=== PATIENT | male | born 1985 | race Caucasian/White ===

== ENCOUNTER 2016-11-23 11:51 | Emergency (ER) | payer MEDICAID ==
[~2016-11-23] VITALS: Ht 193 cm; Wt 89.4 kg
[~2016-11-23 11:51] MED LIST: CAT.1 PO; DIVA500T4 PO; LORA-258 PO; RISP3TAB11 PO; RISP4TAB17 PO
[2016-11-23 12:13] VITALS: BP_SYST 131
--- NOTE | 2016-11-23 12:13 | NUR ---
Patient to ER bed hallway to gon for evaluation. Side rails up. Received report from Rosario BERNSTEIN.
--- NOTE | 2016-11-23 12:23 | NUR ---
Pt AAOx3, able to verbalize needs, parent at bedside with pt. Pt states he scraped foot on a nail and did not get punctured. Denies falling. Right plantar foot noted with bruise and abrasion, no active bleeding noted. Pt ambulatory with steady gait. No other complaints or injuries per pt or noted.
[2016-11-23 12:57] VITALS: BP_SYST 131
--- NOTE | 2016-11-23 12:57 | NUR ---
Patient given written and verbal discharge instructions and verbalizes understanding. ER MD discussed with patient the results and treatment provided. Patient in stable condition. ID arm band removed. Rx of motrin and augmentin given. Patient educated on pain management and to follow up with PMD. Pain Scale 0/10. Opportunity for questions provided and answered.
== END 2016-11-23 12:57 | disposition home or self-care (01) ==
LOC: SED 11:51
DX: S91.331A Puncture wound without foreign body, right foot, initial encounter (principal); F99 Mental disorder, not otherwise specified; Z79.899 Other long term (current) drug therapy; W22.8XXA Striking against or struck by other objects, initial encounter; Y93.89 Activity, other specified; Y92.89 Other specified places as the place of occurrence of the external cause; Y99.8 Other external cause status
CPT/HCPCS: 99283

== ENCOUNTER 2017-02-09 19:21 | Emergency (ER) | payer MEDICAID ==
[~2017-02-09] VITALS: Ht 203.2 cm; Wt 94.8 kg
[2017-02-09 19:27] VITALS: BP_SYST 121
[2017-02-09] MEDS ORDERED: CEPHALEXIN 500 MG CAPSULE PO ONE (19:45)
[2017-02-09] MEDS ORDERED: IBUPROFEN 800 MG TABLET PO ONE (19:45)
[2017-02-09] MEDS ORDERED: DIPHENHYDRAMINE INJ 50 MG/ML VIAL IM ONE (19:45)
[2017-02-09] MEDS ORDERED: SULFAMETHOXAZOLE/TRIMETHOPR DS 1 TABLET PO ONE (19:45)
[2017-02-09] MEDS ORDERED: DIPHENHYDRAMINE HCL 50 MG CAPSULE PO ONE (20:15)
[2017-02-09 20:28] VITALS: BP_SYST 118
== END 2017-02-09 20:28 | disposition home or self-care (01) ==
LOC: SED 19:21
DX: L03.012 Cellulitis of left finger (principal); R03.0 Elevated blood-pressure reading, without diagnosis of hypertension; F43.10 Post-traumatic stress disorder, unspecified; F84.0 Autistic disorder
CPT/HCPCS: 73140; 99284; Q0163; J1200